=== PATIENT | female | born 1985 | race African-American/Black ===

== ENCOUNTER 2017-09-04 01:05 | Inpatient (IN) | payer MEDICAID, OTHER ==
[~2017-09-04] VITALS: Ht 162.6 cm; Wt 102.0 kg
[2017-09-04] VITALS (67 sets, daily range): BP systolic 74–159; BP diastolic 35–124; PULSE 79–300; RESP 16–20; TEMP 97.5–98.4; O2SAT 97–100
[~2017-09-04 01:05] MED LIST: OXYC-360 PO
--- NOTE | 2017-09-04 01:33 | PD ---
HPI Chief Complaint Contractions since 7 PM this evening Date Seen: Sep 04, 2017 Time Seen: 01:30 Travel History International Travel<30 Days: No Contact w/Intl Traveler<30Days: No Known Affected Area: No History of Present Illness HPI 32-year-old at 40 weeks and 2 days comes in complaining of contractions since last evening at around 7 PM. On her last exam patient cervix was 1 cm. She has been counseled regarding vaginal after section and she has had a previous . Patient desires epidural. She is group B strep positive otherwise uncomplicated Weeks Gestation: 40 Para: 1 : 2 History Past Medical History Medical History: Denies Significant Hx Obstetric History Obstetric History section Family History Family History: Negative Social History Alcohol Use: No Tobacco Use: No Substance Abuse: No Allergies-Medications (Allergen,Severity, Reaction): Coded Allergies: No Known Allergies (Verified , 10/01/08) Home Meds Reported Medications Oxycodone/Acetaminophen (Percocet) 5 Mg/325 Mg Tab, 1 - 2 TAB PO Q6HPRN, #30 0 Refills FOR PAIN 10/05/08 Review of Systems Except as stated in HPI: all other systems reviewed are Neg Physical Exam Narrative GENERAL: Well-nourished, well-developed patient. SKIN: Warm and dry. HEAD: Normocephalic and atraumatic. EYES: No scleral icterus. No injection or drainage. ENT: No nasal drainage noted. Mucous membranes pink. Airway patent. NECK: Supple, trachea midline. No JVD. CARDIOVASCULAR: Regular rate and rhythm without murmurs, gallops, or rubs. RESPIRATORY: Breath sounds equal bilaterally. No accessory muscle use. ABDOMEN/GI: Abdomen soft, non-tender, bowel sounds present, no rebound, no guarding Gravid to [-40] weeks size Fundal Height: [-] GENITOURINARY: External Genitalia: intact and normal in appearance BUS glands: [-Normal] Cervix: [-] Mid position Dilatation: [-] 3 Effacement: [-] 90 Station: [-] -2 Presentation: [-] Vertex Membranes: [intact or ruptured] intact Uterine Contractions: [-] Every 4-5 FHT's: Category: [-] 1 Baseline: [-] 140 Reactive: [-] Moderate Variability: [-] Moderate Decels: [-] Absent EXTREMITIES: No cyanosis or edema. BACK: Nontender without obvious deformity. No CVA tenderness. NEUROLOGICAL: Awake and alert. Motor and sensory grossly within normal limits. Five out of 5 muscle strength in all muscle groups. Normal speech. Data Data Vital Signs Reviewed: Yes Group B Strep: Positive MDM Medical Record Reviewed: Yes Plan 32-year-old who is at 40 weeks 2 days with a previous section desiring a trial of labor Patient is in early labor and desires no epidural Understands the risks benefits and alternatives to section and understands that there is a approximately 1% chance of uterine rupture after previous section Patient is group B strep so will need penicillin in labor Diagnosis Diagnosis: Primary Impression: 40 weeks gestation of Additional Impressions: Previous section complicating , antepartum condition or complication Desires (vaginal after ) trial Irregular uterine contractions Lianna Finn MD Sep 04, 2017 01:33
[2017-09-04] MEDS: LACTATED RINGER'S 1000 ML INJ 1,000 ML IV SCH ×5 (01:34→21:10)
[2017-09-04] MEDS ORDERED: LACTATED RINGER'S 1000 ML INJ 1,000 ML IV PRN (01:34)
[2017-09-04] MEDS ORDERED: MINERAL OIL 10 ML VIAL TOPICAL PRN (01:45)
[2017-09-04] MEDS ORDERED: SODIUM CHLORID 0.9% 500 ML INJ 500 ML IV PRN (01:45)
[2017-09-04] MEDS ORDERED: LIDOCAINE HCL 1% 50 ML VIAL I-DERMAL PRN (01:45)
[2017-09-04] MEDS ORDERED: ONDANSETRON HCL 4 MG/2 ML VIAL IV PUSH PRN ×2 (01:45→06:30)
[2017-09-04] MEDS ORDERED: LIDOCAINE HCL 1% 50 ML VIAL INFIL PRN (01:45)
[2017-09-04] MEDS: OXYTOCIN 30 UNITS-500ML PREMIX 500 ML IV ONE ×2 (01:45→07:14)
[2017-09-04] MEDS ORDERED: PENICILLIN G POTASSIUM INJ 5,000,000 UNITS in SODIUM CHLORIDE 0.9% INJ 100 ML IV ONE (01:45)
[2017-09-04] MEDS ORDERED: CITRIC ACID-SODIUM CITRATE LIQ 30 ML UDC PO SCH ×2 (01:45→05:00)
[2017-09-04] MEDS ORDERED: fentaNYL 2MCG-BUPIV 0.125% INJ 100 ML ONE (01:53)
[2017-09-04] MEDS ORDERED: SODIUM CHLOR 0.9% 1000 ML INJ 1,000 ML IV PRN (01:54)
[2017-09-04 02:04] LABS: AUTOMATED NEUTROPHIL # 8.1 TH/MM3 (1.8-7.7); BASOPHIL % 0.2 % (0.0-2.0); EOSINOPHIL # 0.1 TH/MM3 (0-0.4); EOSINOPHIL % 0.5 % (0.0-4.0); HEMATOCRIT 38.2 % (35.0-46.0); HEMOGLOBIN 12.8 GM/DL (11.6-15.3); LYMPHOCYTE # 1.8 TH/MM3 (1.0-4.8); MEAN CELL VOLUME 84.4 FL (80.0-100.0); MEAN CORPUSCULAR HEMOGLOBIN 28.3 PG (27.0-34.0); MEAN CORPUSCULAR HGB CONC 33.5 % (32.0-36.0); MEAN PLATELET VOLUME 9.1 FL (7.0-11.0); MONO % 4.8 % (0.0-8.0); MONOCYTE # 0.5 TH/MM3 (0-0.9); NEUT % 77.5 % (16.0-70.0); PLATELET COUNT 178 TH/MM3 (150-450); RED BLOOD COUNT 4.53 MIL/MM3 (4.00-5.30); RED CELL DISTRIBUTION WIDTH 14.7 % (11.6-17.2); WHITE BLOOD COUNT 10.4 TH/MM3 (4.0-11.0)
[2017-09-04 02:07] LABS: BILIRUBIN, URINE NEG (NEG); BLOOD, URINE TRACE (NEG); GLUCOSE,URINE NEG (NEG); KETONE, URINE 10 mg/dL (NEG); MUCUS URINE FEW /lpf (OCC); NITRITE,URINE NEG (NEG); SQUAMOUS EPITHELIAL CELL URINE 3 /hpf (0-5); URINE COLOR YELLOW (YELLW/STRAW); URINE LEUKOCYTE ESTERASE LARGE (NEG)
[2017-09-04] MEDS ORDERED: NO SYSTEM NARCOTICS PRN (02:20)
[2017-09-04] MEDS ORDERED: fentaNYL 2MCG-BUPIV 0.125% 100 ML EPIDURAL SCH (02:20)
[2017-09-04] MEDS ORDERED: DO NOT ADMINISTER ANTICOAGULANTS PRN (02:20)
[2017-09-04] MEDS ORDERED: ePHEDrine/NS 25 MG/5 ML SYRINGE ONE (02:46)
[2017-09-04] MEDS ORDERED: LIDOCAINE 2%/EPINEPHrine PF 1:200,000 20ML SDV ONE (02:51)
[2017-09-04] MEDS ORDERED: ePHEDrine/NS 25 MG/5 ML SYRINGE IV PUSH PRN (03:15)
[2017-09-04] MEDS ORDERED: TERBUTALINE INJ 1 MG/ML AMP ONE (04:30)
[2017-09-04] MEDS ORDERED: TERBUTALINE INJ 1 MG/ML AMP SQ SCH (04:45)
[2017-09-04] MEDS ORDERED: MORPHINE SULFATE PF 5 MG/10 ML VIAL ONE (04:55)
[2017-09-04] MEDS ORDERED: ACETAMINOPHEN 1000 MG/100 ML 100 ML IV ONE ×2 (04:55→06:30)
[2017-09-04] MEDS ORDERED: LACTATED RINGER'S 1000 ML IV ONE (05:00)
[2017-09-04] MEDS ORDERED: ceFAZolin 2 GM PREMIX 50 ML IV SCH (05:00)
[2017-09-04] MEDS ORDERED: EPIDURAL-DIPHENHYDRAMINE HCL 50 MG/ML VIAL IV PUSH PRN (05:20)
[2017-09-04] MEDS ORDERED: EPIDURAL-NALOXONE HCL 0.4 MG/ML AMP IV PUSH PRN (05:20)
[2017-09-04] MEDS ORDERED: EPIDURAL-DO NOT ADMINISTER ANTICOAGULANTS PRN (05:20)
[2017-09-04] MEDS ORDERED: EPIDURAL-NO SYSTEMIC NARCOTICS PRN (05:20)
[2017-09-04] MEDS ORDERED: EPIDURAL-DIPHENHYDRAMINE HCL 50 MG CAP PO PRN (05:20)
--- NOTE | 2017-09-04 06:28 | PD.OB.DELI ---
Procedure Note Section Procedure Pre Op Diagnosis: (1) Non-reassuring electronic monitoring tracing (2) 40 weeks gestation of (3) Previous section complicating , antepartum condition or complication Post Op Diagnosis: (1) Non-reassuring electronic monitoring tracing (2) 40 weeks gestation of (3) Previous section complicating , antepartum condition or complication (4) Pelvic adhesive disease Performed by Sonya Griffith Procedure: Repeat Low Transverse Sec (lysis of adhesions) Indication for delivery: Nonreassuring heart tracing, malposition ( ROT asynclytic) Previous condition: None Informed consent obtained: For anesthesia, For procedure Confirmed correct: Patient, Procedure, Site, Time-out taken Anesthesia: Epidural Medication prior to procedure: As documented in eMAR Monitoring during procedure: Blood pressure monitoring, Pulse oximetry Urinary catheter: Inserted using sterile technique, To dependent drainage, ml urine output (150) Sterile preparation: In usual fashion, With 2% chlorexidine (Hibiclens), With drapes to expose affected area Position: Supine with wedge to right side, Supine with safety belt applied Operative Features Skin Incision: Pfannenstiel Uterine Incision: Low transverse w/knife / blunt ext Membranes Ruptured: Artificially, Previously, Appearance of fluid (cl) Presentation: Other (ROT asynclytic) Delivery date: Sep 04, 2017 Delivery time: 05:24 Delivery of : Uneventful : Female One Minute : 8 Five Minute : 8 Weight: 3585g Status of infant: Viable, Cord blood, Umbilical cord, Nursery present (cpap required) Medications: Antibiotics, Oxytocin Estimated blood loss: 500ml Procedure tolerated: Well Maternal Complications: Other (Adhesive band of uterus to anterior abdominal wall , filmy adhesions of bladder to lower uterine segment, normal tubes and ovaries, rectus diastasis, scarring of fascia and subcutaneous tissue) Maternal Condition: Stable Baby Complications: Hypoxia (cpap requires as O2 sats in the 80's) Condition: Fair Procedure in detail dictation Sonya Griffith MD Sep 04, 2017 06:28
[2017-09-04] MEDS ORDERED: ACETAMINOPHEN 325 MG TAB PO PRN (06:30)
[2017-09-04] MEDS ORDERED: OXYTOCIN 30 UNITS-500ML PREMIX 500 ML IV ONE (06:30)
[2017-09-04] MEDS ORDERED: SODIUM CHLORIDE 0.9% FLUSH 10 ML FLUSH IV FLUSH PRN (06:30)
[2017-09-04] MEDS ORDERED: ZOLPIDEM TARTRATE 5 MG TAB PO PRN (06:30)
[2017-09-04] MEDS ORDERED: oxyCODONE/ACETAMINOPHEN 5 MG/325 MG TAB PO PRN (06:30)
[2017-09-04] MEDS ORDERED: SIMETHICONE 80 MG CHEWABLE TAB PO PRN (06:30)
[2017-09-04] MEDS ORDERED: OXYTOCIN 30 UNITS-500ML PREMIX 500 ML ONE (07:11)
[2017-09-04] MEDS ORDERED: SODIUM CHLORIDE 0.9% FLUSH 10 ML FLUSH IV FLUSH SCH (09:00)
--- NOTE | 2017-09-04 10:10 | MP ---
cc: SONYA GRIFFITH MD DATE OF SURGERY 09/04/2017 PREOPERATIVE DIAGNOSIS 1. History of delivery. 2. Intrauterine at 40 weeks. 3. Non-reassuring heart tones. POSTOPERATIVE DIAGNOSIS 1. History of delivery. 2. Intrauterine at 40 weeks. 3. Non-reassuring heart tones. 4. Pelvic adhesive disease. PROCEDURE Repeat low transverse delivery with lysis of adhesions. SURGEON Sonya Griffith. BUDGET ASSISTANT Suman Staff. INDICATION The patient is a 32-year-old, para 1, who presented at 40 weeks plus gestation with contractions in early labor. She has a history of a previous delivery and desired a trial of labor. She had an epidural and had hypertension that resulted in a prolonged deceleration. After was given heart tones did recover. Subsequently tachycardia developed and late decelerations. She had a cervical dilation of only 6 cm. Given she was remote from delivery with a category II strip the decision was made to proceed with a delivery. INTRAOPERATIVE FINDINGS Adhesive band between the uterus and anterior abdominal wall. Filmy adhesions of the bladder to the lower uterine segment. Scarring of the fascia and subcutaneous tissue. Normal tubes and ovaries bilaterally. Viable female infant, Apgars 8 and 8, did require CPAP, weight 3585 grams, presentation ROT. There was a cord around the neck. Placenta central cord insertion intact. ESTIMATED BLOOD LOSS 500 mL. IV FLUIDS 1400 mL. URINE OUTPUT 150 mL. PREOPERATIVE ANTIBIOTIC Ancef 2 grams IV given pre incision. DVT PROPHYLAXIS SCDs to bilateral lower extremities. COMPLICATIONS None. COUNTS Correct x3. PROCEDURE IN DETAIL After review of informed consent the patient was taken to the operating room where epidural was adequate for delivery. A Mehta was already in place. The abdomen was prepped and draped in normal sterile fashion. A skin incision was made with a scalpel and carried down to underlying layer of fascia with the Bovie. The fascia was incised in the midline and extended bilaterally with Eng scissors. Yohan clamps were placed on the superior aspect of the fascia. Blunt dissection and dissection with Eng scissors was used to separate the rectus muscles from the fascia. The same was repeated inferiorly. The rectus muscles were noted to have a large rectus diastasis. The peritoneum was entered bluntly and this was extended bluntly. A bladder blade was then inserted. There was an adhesive band between the uterus and the anterior abdominal wall right above where the hysterotomy would be. This was double clamped with Kellys, cut and suture ligated. Some adhesions from the prior section were taken down with Metzenbaum scissors. The bladder flap was created with Metzenbaum scissors. The bladder blade was reintroduced. A low transverse uterine incision was made with a scalpel and extended bluntly. The head was grasped, flexed, brought to the level of the hysterotomy and fundal pressure was used to deliver the head. A cord was around the neck; this was reduced. The rest of body readily followed with gentle fundal pressure. The baby was bulb suctioned. The cord was double clamped, cut, and the infant handed off to the awaiting nursery team. The baby did require CPAP as O2 saturations were under 90%. A segment of cord was collected for cord pH. Cord blood was sent. The placenta was delivered with gentle uterine massage and cord traction. The uterus was exteriorized. Moist laparotomy sponges were used to clear the uterus of all debris, clots and membranes. The uterus was repaired in two layers with #1 chromic, first in a running lock fashion then in an imbricating layer. There was another adhesive band from the peritoneum to the lateral aspect of the uterus; this was taken down with the Bovie. The posterior cul-de-sac was irrigated and suctioned. The uterus was returned to the abdomen. The anterior cul-de-sac was irrigated and suctioned. Jacob was placed over the hysterotomy where the filmy adhesions were previously and the site of peritoneal band ligation. Hemostasis was noted. The peritoneum was closed with 2-0 chromic in a running fashion. The fascia was closed with #1 Vicryl in a running fashion. The subcutaneous tissue was irrigated and suctioned. Hemostasis was ensured with the Bovie. This layer was closed with 2-0 chromic in a running fashion. The skin was closed with 3-0 Monocryl in a subcuticular fashion. A pressure dressing was placed. All counts were correct. The patient tolerated the procedure well. Sonya Griffith MD PE/TAYLOR /6:27 AM /9:42 AM
[2017-09-04] MEDS: ACETAMINOPHEN 1000 MG/100 ML 100 ML IV SCH ×2 (13:50→21:10)
[2017-09-04] MEDS ORDERED: OXYTOCIN 30 UNITS-500ML PREMIX 500 ML IV PRN (16:30)
[2017-09-04] MEDS: PENICILLIN G POTASSIUM INJ 2,500,000 UNITS in SODIUM CHLORIDE 0.9% INJ 100 ML IV SCH ×2 (17:45→19:29)
[2017-09-04] MEDS: LACTATED RINGER'S 1000 ML IV SCH ×3 (18:20→20:56)
[2017-09-04] MEDS: IBUPROFEN 600 MG TAB PO PRN (23:53)
[2017-09-05 00:30] VITALS: BP 101/71; PULSE 88; RESP 16; TEMP 99.1; O2SAT 100
[2017-09-05] MEDS: IBUPROFEN 600 MG TAB PO PRN ×3 (05:48→22:33)
[2017-09-05 06:02] LABS: AUTOMATED NEUTROPHIL # 8.4 TH/MM3 (1.8-7.7); BASOPHIL % 0.2 % (0.0-2.0); EOSINOPHIL % 0.3 % (0.0-4.0); HEMATOCRIT 32.3 % (35.0-46.0); HEMOGLOBIN 10.5 GM/DL (11.6-15.3); LYMPHOCYTE # 1.6 TH/MM3 (1.0-4.8); MEAN CELL VOLUME 85.6 FL (80.0-100.0); MEAN CORPUSCULAR HEMOGLOBIN 27.9 PG (27.0-34.0); MEAN CORPUSCULAR HGB CONC 32.6 % (32.0-36.0); MONO % 7.2 % (0.0-8.0); MONOCYTE # 0.8 TH/MM3 (0-0.9); NEUT % 77.3 % (16.0-70.0); PLATELET COUNT 155 TH/MM3 (150-450); RED BLOOD COUNT 3.77 MIL/MM3 (4.00-5.30); WHITE BLOOD COUNT 10.9 TH/MM3 (4.0-11.0)
[2017-09-05 08:00] VITALS: BP 97/69; PULSE 97; RESP 18; TEMP 98.3
--- NOTE | 2017-09-05 08:46 | HHI.OB ---
Subjective Post Operative Day: 1 Remarks doing well, pain controlled, VB < menses, ambulating, voiding, TPO no N/V. Objective Vitals/I&O Vital Signs Date Time Temp Pulse Resp B/P (MAP) Pulse Ox O2 Delivery O2 Flow Rate FiO2 09/05/17 00:30 88 16 101/71 (81) 100 09/05/17 00:30 99.1 09/04/17 20:55 98.2 18 101/68 (79) 09/04/17 20:55 100 09/04/17 14:40 97.6 94 18 113/69 (84) 09/04/17 13:25 18 09/04/17 12:26 98.2 18 09/04/17 12:26 96 106/66 (79) 09/04/17 11:45 16 09/04/17 10:25 18 09/04/17 09:00 18 Result Diagram: 09/05/17 0502 Objective Remarks GENERAL: Well-nourished, well-developed patient. CARDIOVASCULAR: Regular rate and rhythm without murmurs, gallops, or rubs. RESPIRATORY: Breath sounds equal bilaterally. No accessory muscle use. ABDOMEN/GI: Abdomen soft, non-tender, bowel sounds present. bandage: Clean, dry and intact. Fundus: Firm, non-tender at umbilicus. GENITOURINARY: Light to moderate bleeding. EXTREMITIES: No cyanosis or edema, non-tender, without signs of DVT. Medications and IVs Current Medications Medications (Trade) Dose Ordered Sig/Tonny Route Start Time Stop Time Status Last Admin Lactated Ringer's 1,000 ml @ 125 mls/hr Q8H IV 09/04/17 01:34 09/04/17 01:34 Lactated Ringer's 1,000 ml @ 3,000 mls/hr Q20M PRN IV 09/04/17 01:34 Sodium Chloride 500 ml @ 1,000 mls/hr ONCE PRN IV 09/04/17 01:45 Sodium Chloride 1,000 ml @ 100 mls/hr Q10H PRN IV 09/04/17 01:54 (Xylocaine 1% Inj (50 ml)) 0.1 ml UNSCH X1 PRN I-DERMAL 09/04/17 01:45 09/07/17 01:44 (Bicitra Liq) 30 ml PLASTIC TILE SETTER PO 09/04/17 01:45 09/08/17 01:44 (fentaNYL INJ) 50 mcg Q1H PRN IV PUSH 09/04/17 01:45 (fentaNYL INJ) 100 mcg Q1H PRN IV PUSH 09/04/17 01:45 Penicillin G Potassium [id number] units/Sodium Chloride 100 ml @ 200 mls/hr Q4H IV 09/04/17 05:45 (Xylocaine 1% Inj (50 ml)) 10 ml UNSCH X1 PRN INFIL 09/04/17 01:45 09/06/17 01:44 (Muri-Lube Oil) 10 ml UNSCH PRN TOPICAL 09/04/17 01:45 Fentanyl/ Bupivacaine HCl 100 ml @ 0 mls/hr TITRATE EPIDURAL 09/04/17 02:20 Lactated Ringer's 1,000 ml @ 150 mls/hr Q6H40M IV 09/04/17 05:00 (Bicitra Liq) 30 ml PLASTIC TILE SETTER PO 09/04/17 05:00 09/07/17 04:59 Cefazolin Sodium/ Dextrose 50 ml @ 100 mls/hr PLASTIC TILE SETTER IV 09/04/17 05:00 09/07/17 04:59 09/04/17 07:07 Oxytocin 500 ml @ 100 mls/hr UNSCH X1 PRN IV 09/04/17 16:30 09/05/17 16:29 (NS Flush) 2 ml BID IV FLUSH 09/04/17 09:00 (NS Flush) 2 ml UNSCH PRN IV FLUSH 09/04/17 06:30 (Mylicon Chew) 80 mg QID PRN PO 09/04/17 06:30 (Tylenol) 650 mg Q6H PRN PO 09/04/17 06:30 (Motrin) 600 mg Q6H PRN PO 09/04/17 06:30 09/05/17 05:48 (Percocet 5-325 Mg) 1 tab Q4H PRN PO 09/04/17 06:30 (Percocet 5-325 Mg) 2 tab Q4H PRN PO 09/04/17 06:30 (Erica-Colace) 2 tab Q12H PRN PO 09/04/17 06:30 (Ambien) 5 mg HS PRN PO 09/04/17 06:30 (M-M-R Ii Inj) 0.5 ml ONCE ONCE SQ 09/05/17 16:00 09/05/17 16:01 (Boostrix Inj) 0.5 ml ONCE ONCE IM 09/05/17 16:00 09/05/17 16:01 (Zofran Inj) 4 mg Q6H PRN IV PUSH 09/04/17 06:30 Assessment/Plan Discharge Planning 32 yo s/p RLTCS for NRFHTs at 40w 1. POD #1: AF, VSS, output and AM labs appropriate, continue / post op care, discussed precautions and expectations. Job Back MD Sep 05, 2017 08:46
[2017-09-05] MEDS ORDERED: PERC5TAB12 PO (08:48)
--- NOTE | 2017-09-05 08:48 | HHI.DCPOC ---
Discharge Care Plan Your Health Problems Are: delivery Report Symptoms to Your Doctor -Temperature above 100.5 degrees -Redness, of incision or excessive or foul smelling drainage -Unusual pain or calf pain -Increased vaginal bleeding -Painful or difficulty urinating -Feelings of extreme sadness or anxiety after 2 weeks Goals to Promote Your Health * To prevent worsening of your condition and complications * To maintain your health at the optimal level Directions to Meet Your Goals Take your medications as prescribed Follow your dietary instruction Follow activity as directed Ensure plenty of rest for recovery Drink fluids for hydration Keep your appointments as scheduled Take your immunizations and boosters as scheduled If your symptoms worsen call your PCP, if no PCP go to Urgent Care Center or Emergency Room Smoking is Dangerous to Your Health. Avoid second hand smoke Call the 24-hour crisis hotline for domestic abuse at Job Back MD Sep 05, 2017 08:48
[2017-09-05] MEDS: oxyCODONE/ACETAMINOPHEN 5 MG/325 MG TAB PO PRN ×2 (15:25→22:33)
[2017-09-05] MEDS ORDERED: DIPHTH/TETANUS/ACEL PERTUSSIS (BOOSTER) 0.5 ML VIAL/PFS IM ONE (16:00)
[2017-09-05] MEDS ORDERED: MEASLES, MUMPS, RUBELLA VACCINE 0.5 ML VIAL SQ ONE (16:00)
[2017-09-05] MEDS ORDERED: WITCH HAZEL 50%/GLYCERIN 12.5% 40 PAD JAR TOPICAL PRN (16:45)
[2017-09-05 22:43] VITALS: BP 92/61; PULSE 93; RESP 16; TEMP 97.8; O2SAT 98
[2017-09-06] MEDS: oxyCODONE/ACETAMINOPHEN 5 MG/325 MG TAB PO PRN ×3 (07:40→20:27)
[2017-09-06] MEDS: IBUPROFEN 600 MG TAB PO PRN ×3 (07:40→20:28)
[2017-09-06 08:00] VITALS: BP 112/77; PULSE 98; RESP 16; TEMP 98.3; O2SAT 98
--- NOTE | 2017-09-06 08:03 | HHI.OB ---
Subjective Post Operative Day: 2 Remarks Doing well Some pain this am Tolerating diet well No flatus yet Ambulating well Having some hemorrhoid pain Objective Vitals/I&O Vital Signs Date Time Temp Pulse Resp B/P (MAP) Pulse Ox O2 Delivery O2 Flow Rate FiO2 09/05/17 22:43 97.8 93 16 92/61 (71) 98 09/05/17 08:00 98.3 97 18 97/69 (78) Result Diagram: 09/05/17 0507 Objective Remarks GENERAL: Well-nourished, well-developed patient. CARDIOVASCULAR: Regular rate and rhythm without murmurs, gallops, or rubs. RESPIRATORY: Breath sounds equal bilaterally. No accessory muscle use. ABDOMEN/GI: Abdomen soft, non-tender, bowel sounds present. bandage: Clean, dry and intact. Fundus: Firm, non-tender 2FB above umbilicus. GENITOURINARY: Light to moderate bleeding. EXTREMITIES: No cyanosis or edema, non-tender, without signs of DVT. Medications and IVs Current Medications Medications (Trade) Dose Ordered Sig/Tonny Route Start Time Stop Time Status Last Admin Lactated Ringer's 1,000 ml @ 125 mls/hr Q8H IV 09/04/17 01:34 09/04/17 01:34 Lactated Ringer's 1,000 ml @ 3,000 mls/hr Q20M PRN IV 09/04/17 01:34 Sodium Chloride 500 ml @ 1,000 mls/hr ONCE PRN IV 09/04/17 01:45 Sodium Chloride 1,000 ml @ 100 mls/hr Q10H PRN IV 09/04/17 01:54 (Xylocaine 1% Inj (50 ml)) 0.1 ml UNSCH X1 PRN I-DERMAL 09/04/17 01:45 09/07/17 01:44 (Bicitra Liq) 30 ml MEDIA RELATIONS COORDINATOR PO 09/04/17 01:45 09/08/17 01:44 (fentaNYL INJ) 50 mcg Q1H PRN IV PUSH 09/04/17 01:45 (fentaNYL INJ) 100 mcg Q1H PRN IV PUSH 09/04/17 01:45 Penicillin G Potassium [id number] units/Sodium Chloride 100 ml @ 200 mls/hr Q4H IV 09/04/17 05:45 (Muri-Lube Oil) 10 ml UNSCH PRN TOPICAL 09/04/17 01:45 Fentanyl/ Bupivacaine HCl 100 ml @ 0 mls/hr TITRATE EPIDURAL 09/04/17 02:20 Lactated Ringer's 1,000 ml @ 150 mls/hr Q6H40M IV 09/04/17 05:00 (Bicitra Liq) 30 ml MEDIA RELATIONS COORDINATOR PO 09/04/17 05:00 09/07/17 04:59 Cefazolin Sodium/ Dextrose 50 ml @ 100 mls/hr MEDIA RELATIONS COORDINATOR IV 09/04/17 05:00 09/07/17 04:59 09/04/17 07:07 (NS Flush) 2 ml BID IV FLUSH 09/04/17 09:00 (NS Flush) 2 ml UNSCH PRN IV FLUSH 09/04/17 06:30 (Mylicon Chew) 80 mg QID PRN PO 09/04/17 06:30 (Tylenol) 650 mg Q6H PRN PO 09/04/17 06:30 (Motrin) 600 mg Q6H PRN PO 09/04/17 06:30 09/06/17 07:40 (Percocet 5-325 Mg) 1 tab Q4H PRN PO 09/04/17 06:30 09/05/17 10:42 (Percocet 5-325 Mg) 2 tab Q4H PRN PO 09/04/17 06:30 09/06/17 07:40 (Erica-Colace) 2 tab Q12H PRN PO 09/04/17 06:30 (Ambien) 5 mg HS PRN PO 09/04/17 06:30 (Zofran Inj) 4 mg Q6H PRN IV PUSH 09/04/17 06:30 (Tucks Pads) 1 applic QID PRN TOPICAL 09/05/17 16:45 09/05/17 16:40 Assessment/Plan Discharge Planning POD#2 Uterus is above umbilicus and is slg tender. Has voided recently. Anemia will start fe soon Hemmorrhoid start proctofoAlba Nugent MD Sep 06, 2017 08:03
[2017-09-06] MEDS ORDERED: HYDROCORTISONE/PRAMOXINE RECTAL FOAM 10 GM CAN RECTAL PRN (08:15)
[2017-09-06 20:26] VITALS: BP 116/76; PULSE 96; RESP 20; TEMP 98.6; O2SAT 100
[2017-09-06] MEDS: DOCUSATE SODIUM 50 MG/SENNA 8.6 MG TAB PO PRN (20:28)
[2017-09-07 08:00] VITALS: BP 106/70; PULSE 107; RESP 18; TEMP 99.8; O2SAT 99
[2017-09-07] MEDS: IBUPROFEN 600 MG TAB PO PRN (08:25)
[2017-09-07] MEDS: DOCUSATE SODIUM 50 MG/SENNA 8.6 MG TAB PO PRN (08:25)
[2017-09-07] MEDS: oxyCODONE/ACETAMINOPHEN 5 MG/325 MG TAB PO PRN (08:25)
--- NOTE | 2017-09-07 11:24 | HHI.OB ---
Subjective Post Operative Day: 3 Remarks Doing well ready for discharge Objective Vitals/I&O Vital Signs Date Time Temp Pulse Resp B/P (MAP) Pulse Ox O2 Delivery O2 Flow Rate FiO2 09/07/17 08:00 107 106/70 (82) 09/07/17 08:00 99.8 18 99 09/06/17 20:26 98.6 100 09/06/17 20:26 96 20 116/76 (89) Result Diagram: 09/05/17 0507 Objective Remarks GENERAL: Well-nourished, well-developed patient. CARDIOVASCULAR: Regular rate and rhythm without murmurs, gallops, or rubs. RESPIRATORY: Breath sounds equal bilaterally. No accessory muscle use. ABDOMEN/GI: Abdomen soft, non-tender, bowel sounds present. bandage: Clean, dry and intact. Fundus: Firm, non-tender 2FB above umbilicus. GENITOURINARY: Light to moderate bleeding. EXTREMITIES: No cyanosis or edema, non-tender, without signs of DVT. Medications and IVs Current Medications Medications (Trade) Dose Ordered Sig/Tonny Route Start Time Stop Time Status Last Admin Lactated Ringer's 1,000 ml @ 125 mls/hr Q8H IV 09/04/17 01:34 09/04/17 01:34 Lactated Ringer's 1,000 ml @ 3,000 mls/hr Q20M PRN IV 09/04/17 01:34 Sodium Chloride 500 ml @ 1,000 mls/hr ONCE PRN IV 09/04/17 01:45 Sodium Chloride 1,000 ml @ 100 mls/hr Q10H PRN IV 09/04/17 01:54 (Bicitra Liq) 30 ml INVESTMENT PROFESSIONAL PO 09/04/17 01:45 09/08/17 01:44 (fentaNYL INJ) 50 mcg Q1H PRN IV PUSH 09/04/17 01:45 (fentaNYL INJ) 100 mcg Q1H PRN IV PUSH 09/04/17 01:45 Penicillin G Potassium [id number] units/Sodium Chloride 100 ml @ 200 mls/hr Q4H IV 09/04/17 05:45 (Muri-Lube Oil) 10 ml UNSCH PRN TOPICAL 09/04/17 01:45 Fentanyl/ Bupivacaine HCl 100 ml @ 0 mls/hr TITRATE EPIDURAL 09/04/17 02:20 Lactated Ringer's 1,000 ml @ 150 mls/hr Q6H40M IV 09/04/17 05:00 (NS Flush) 2 ml BID IV FLUSH 09/04/17 09:00 (NS Flush) 2 ml UNSCH PRN IV FLUSH 09/04/17 06:30 (Mylicon Chew) 80 mg QID PRN PO 09/04/17 06:30 (Tylenol) 650 mg Q6H PRN PO 09/04/17 06:30 (Motrin) 600 mg Q6H PRN PO 09/04/17 06:30 09/07/17 08:25 (Percocet 5-325 Mg) 1 tab Q4H PRN PO 09/04/17 06:30 09/05/17 10:42 (Percocet 5-325 Mg) 2 tab Q4H PRN PO 09/04/17 06:30 09/07/17 08:25 (Erica-Colace) 2 tab Q12H PRN PO 09/04/17 06:30 09/07/17 08:25 (Ambien) 5 mg HS PRN PO 09/04/17 06:30 (Zofran Inj) 4 mg Q6H PRN IV PUSH 09/04/17 06:30 (Tucks Pads) 1 applic QID PRN TOPICAL 09/05/17 16:45 09/05/17 16:40 (Proctofoam Hc Rectal Foam) 1 applic Q8H PRN RECTAL 09/06/17 08:15 09/06/17 08:37 Assessment/Plan Discharge Planning POD#2 Uterus is above umbilicus and is slg tender. Has voided recently. Anemia will start fe soon Hemmorrhoid start proctofoam POD 3 doing well and ready for discharge follow up in one week in office Elenita Colon MD Sep 07, 2017 11:24
[2017-09-07] MEDS ORDERED: OXYC1TAB63 PO (11:25)
== END 2017-09-07 15:27 | disposition home or self-care (01) | DRG 766 ==
LOC: HOBED 01:05 → H2EA 01:33 → H1EA 08:23
PROVIDERS: ADMIT Obstetrics & Gynecology; ATTEND Obstetrics & Gynecology
PROC: 10D00Z1 Extraction of Products of Conception, Low, Open Approach (ICD-10-PCS; principal; 2017-09-04)
PROC: 00HU33Z Insertion of Infusion Device into Spinal Canal, Percutaneous Approach (ICD-10-PCS; 2017-09-04)
PROC: 3E0R3BZ Introduction of Anesthetic Agent into Spinal Canal, Percutaneous Approach (ICD-10-PCS; 2017-09-04)
DX: O99.824 Streptococcus B carrier state complicating childbirth (principal); K64.9 Unspecified hemorrhoids; O76 Abnormality in fetal heart rate and rhythm complicating labor and delivery; Z37.0 Single live birth; Z3A.40 40 weeks gestation of pregnancy; O34.211 Maternal care for low transverse scar from previous cesarean delivery; N73.6 Female pelvic peritoneal adhesions (postinfective); O32.9XX0 Maternal care for malpresentation of fetus, unspecified, not applicable or unspecified
CPT/HCPCS: 59025; 80307; 81001; 82805; 85025; 86850; 86900; 86901; 87086; 88307; J0131; J0690; J2274; J2540; J2590; J3010; J3105; J7120